=== PATIENT | male | born 1950 | race Caucasian/White ===

== ENCOUNTER 2017-12-25 01:19 | Emergency (ER) | payer MEDICARE ==
--- NOTE | 2017-12-25 01:24 | ER Report ---
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 Patient got up to go urinate. When he returned to bed. He was unable to lie supine and sleep. He only notes a history of hypertension. He was a former smoker who quit in 1999. Of COPD on arrival. His pulse ox is 87% on room air. Patient voices no fever, chills or productive cough. Patient notes no leg swelling or calf pain. Patient notes no chest pain. Patient denies sleep apnea. REVIEW OF SYSTEMS: Respiratory: As above Cardiovascular: No chest pain, no palpitations. Gastrointestinal: No vomiting, no abdominal pain. Musculoskeletal: No back pain. 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 Reviewed Nurses Notes: Yes Old Medical Records Reviewed: Yes Constitutional Vital Sign - Last 24 Hours 12/25/17 12/25/17 12/25/17 12/25/17 01:25 01:26 01:34 01:39 Temp 98.7 Pulse 75 71 Resp 18 B/P (MAP) 154/93 (113) 154/93 Pulse Ox 87 98 O2 Delivery Room Air O2 Flow Rate 2.0 12/25/17 12/25/17 12/25/17 12/25/17 01:46 01:46 01:49 02:30 Pulse 71 73 Resp 16 B/P (MAP) 128/86 (100) Pulse Ox 95 95 O2 Delivery Nasal Cannula O2 Flow Rate 3.0 12/25/17 12/25/17 12/25/17 12/25/17 02:34 02:39 02:54 03:09 Pulse 71 71 71 70 Pulse Ox 96 95 95 97 12/25/17 12/25/17 03:24 03:49 Pulse 72 85 Resp 16 B/P (MAP) 138/85 (102) Pulse Ox 97 95 O2 Delivery Room Air Physical Exam Vital signs stable, afebrile, pulse ox low 87% on room air General Appearance: The patient is alert, has no immediate need for airway protection and no current signs of toxicity. Vital signs stable, afebrile, pulse ox low 87% on room air. On 2 L sat 95% range HEENT: Pupils equal and round no injection. TMs normal, oropharynx without redness or exudate, mucous membranes are moist Respiratory: Chest is non tender, decreased breath sounds throughout, no wheezing or rhonchi Cardiac: regular rate and rhythm, distant heart sounds Gastrointestinal: Abdomen is soft and non tender, no masses, bowel sounds normal. Musculoskeletal: Neck: Neck is supple and non tender. Extremities have full range of motion and are non tender. No edema, no calf tenderness Skin: No rashes or lesions. DIFFERENTIAL DIAGNOSIS: After history and physical exam differential diagnosis was considered for shortness of breath including but not limited to pulmonary infectious process, COPD, asthma, pulmonary embolus and congestive heart failure. Medical Decision Making Data Points Result Diagram: 12/25/1712912/25/17129 Laboratory Hematology Test 12/25/17 01:30 Red Blood Count 5.14 M/uL (4.00-5.60) Mean Corpuscular Volume 87.2 fL (80.0-96.0) Mean Corpuscular Hemoglobin 30.2 pg (26.0-33.0) Mean Corpuscular Hemoglobin Concent 34.6 g/dL (32.0-36.0) Red Cell Distribution Width 13.0 % (11.5-14.5) Mean Platelet Volume 8.9 fL (7.2-11.1) Neutrophils (%) (Auto) 62.2 % (39.4-72.5) Lymphocytes (%) (Auto) 25.5 % (17.6-49.6) Monocytes (%) (Auto) 8.0 % (4.1-12.4) Eosinophils (%) (Auto) 3.4 % (0.4-6.7) Basophils (%) (Auto) 0.9 % (0.3-1.4) Nucleated RBC Relative Count (auto) 0.1 /100WBC Neutrophils # (Auto) 5.2 K/uL (2.0-7.4) Lymphocytes # (Auto) 2.1 K/uL (1.3-3.6) Monocytes # (Auto) 0.7 K/uL (0.3-1.0) Eosinophils # (Auto) 0.3 K/uL (0.0-0.5) Basophils # (Auto) 0.1 K/uL (0.0-0.1) Nucleated RBC Absolute Count (auto) 0.01 K/uL D-Dimer Quantitative (PE/DVT) 2.34 ug/ml (0-0.50) Sodium Level 141 mmol/L (137-145) Potassium Level 3.8 mmol/L (3.5-5.0) Chloride Level 98 mmol/L (98-107) Carbon Dioxide Level 32 mmol/L (22-30) Blood Urea Nitrogen 21 mg/dl (9-21) Creatinine 1.30 mg/dl (0.66-1.25) Glomerular Filtration Rate Calc 54.9 Random Glucose 131 mg/dl (75-110) Calcium Level 9.3 mg/dl (8.4-10.2) Total Bilirubin 0.7 mg/dl (0.2-1.3) Aspartate Amino Transf (AST/SGOT) 61 U/L (0-35) Alanine Aminotransferase (ALT/SGPT) 91 U/L (0-56) Alkaline Phosphatase 76 U/L (0-126) Troponin I < 0.012 ng/ml B-Type Natriuretic Peptide 36 pg/ml (0-100) Total Protein 7.9 g/dl (6.3-8.2) Albumin 4.3 g/dl (3.5-5.0) Chemistry Test 12/25/17 01:30 White Blood Count 8.3 k/uL (4.5-11.0) Red Blood Count 5.14 M/uL (4.00-5.60) Hemoglobin 15.5 g/dL (14.0-18.0) Hematocrit 44.8 % (42.0-52.0) Mean Corpuscular Volume 87.2 fL (80.0-96.0) Mean Corpuscular Hemoglobin 30.2 pg (26.0-33.0) Mean Corpuscular Hemoglobin Concent 34.6 g/dL (32.0-36.0) Red Cell Distribution Width 13.0 % (11.5-14.5) Platelet Count 232 K/uL (150-450) Mean Platelet Volume 8.9 fL (7.2-11.1) Neutrophils (%) (Auto) 62.2 % (39.4-72.5) Lymphocytes (%) (Auto) 25.5 % (17.6-49.6) Monocytes (%) (Auto) 8.0 % (4.1-12.4) Eosinophils (%) (Auto) 3.4 % (0.4-6.7) Basophils (%) (Auto) 0.9 % (0.3-1.4) Nucleated RBC Relative Count (auto) 0.1 /100WBC Neutrophils # (Auto) 5.2 K/uL (2.0-7.4) Lymphocytes # (Auto) 2.1 K/uL (1.3-3.6) Monocytes # (Auto) 0.7 K/uL (0.3-1.0) Eosinophils # (Auto) 0.3 K/uL (0.0-0.5) Basophils # (Auto) 0.1 K/uL (0.0-0.1) Nucleated RBC Absolute Count (auto) 0.01 K/uL D-Dimer Quantitative (PE/DVT) 2.34 ug/ml (0-0.50) Glomerular Filtration Rate Calc 54.9 Calcium Level 9.3 mg/dl (8.4-10.2) Total Bilirubin 0.7 mg/dl (0.2-1.3) Aspartate Amino Transf (AST/SGOT) 61 U/L (0-35) Alanine Aminotransferase (ALT/SGPT) 91 U/L (0-56) Alkaline Phosphatase 76 U/L (0-126) Troponin I < 0.012 ng/ml B-Type Natriuretic Peptide 36 pg/ml (0-100) Total Protein 7.9 g/dl (6.3-8.2) Albumin 4.3 g/dl (3.5-5.0) Coagulation Test 12/25/17 01:30 D-Dimer Quantitative (PE/DVT) 2.34 ug/ml EKG/Imaging EKG Interpretation 12 lead EK 145 Rhythm: normal sinus rhythm Morrison: normal QRS: normal ST segments: normal, no evidence of ischemia or dysrhythmia Imaging Results: CT scan of the CTA pulmonary angiogram was obtained. The results of the study are CT ANGIOGRAM OF THE CHEST WITH INTRAVENOUS CONTRAST, PE PROTOCOL DATE OF EXAM: 12/25/2017 01:57 COMPARISON: None. INDICATION: dyspnea. TECHNIQUE: Contrast enhanced chest CT performed during the injection of 75 ml of Isovue-370. Three-dimensional (MIP) reconstructions were performed. FINDINGS: Negative for pulmonary arterial embolus. Thyroid: Normal Thoracic inlet: No adenopathy. Heart and great vessels: Heart size is normal. LAD atherosclerosis is noted. Mediastinum and ana: No mediastinal or hilar adenopathy. Lungs and pleura: Mild to moderate apical predominant centrilobular emphysema. Mild dependent atelectasis at the lung bases. Breast and axilla: Not diagnostically imaged. Bones and soft tissues: Multilevel degenerative findings. No acute osseous abnormality. Upper abdomen: Unremarkable IMPRESSION: Negative for pulmonary arterial embolus. The study was read by the radiologist. I viewed the images myself on the PACS system. ED Course/Re-evaluation Clinical Indication for ER IV: IV Access ED Course Patient was admitted to an examination room. H&P was done. The differential diagnoses was considered. Patient is from a lower elevation. He's here deer [place]. He has sleep apnea. He woke up to go to the bathroom. He became short of breath, was unable to sleep or lie supine. He came to the ER for evaluation. Arrival, patient's pulse ox is mildly low at 87%. He's had no chest pain or leg swelling. As a productive cough to suggest pneumonia or infectious etiology. His EKG is unremarkable for evidence of ischemia or dysrhythmia. A diagnostic studies show elevated d-dimer. He is sent for CTA pulmonary injury gram which is unremarkable. It does show some emphysema. He did improve with a DuoNeb treatment. He'll be discharged on albuterol inhaler. He's advised to follow-up with his primary care doctor upon returning home to [facility]. Decision to Disposition Date: Dec 25, 2017 Decision to Disposition Time: 03:26 Depart Departure Latest Vital Signs Vital Signs Date Time Temp Pulse Resp B/P (MAP) Pulse Ox O2 Delivery O2 Flow Rate FiO2 12/25/17 03:49 85 16 138/85 (102) 95 Room Air 12/25/17 01:46 3.0 12/25/17 01:26 98.7 Impression: Primary Impression: Dyspnea Additional Impressions: Hypoxia Sleep apnea COPD (chronic obstructive pulmonary disease) Condition: Improved Disposition: HOME OR SELF-CARE Patient Instructions: Dyspnea (ED) Additional Instructions: Follow-up with your physician upon returning home [place] Problem Qualifiers Primary Impression: Dyspnea Dyspnea type: unspecified Qualified Codes: R06.00 - Dyspnea, unspecified Additional Impressions: Sleep apnea Sleep apnea type: unspecified type Qualified Codes: G47.30 - Sleep apnea, unspecified COPD (chronic obstructive pulmonary disease) COPD type: emphysema Emphysema type: centrilobular Qualified Codes: J43.2 - Centrilobular emphysema POONAM PARRY DO Dec 25, 2017 01:24
[2017-12-25] MEDS ORDERED: BLOOD PRESSURE (01:26)
[2017-12-25] MEDS ORDERED: DIURETIC (01:26)
[2017-12-25] MEDS ORDERED: methylPREDNIS SUCC 125 MG/2ML IVP ONE (01:35)
[2017-12-25] MEDS ORDERED: ALBUTEROL/IPRATROPIUM 3 ML NEB NEB ONE (01:35)
[2017-12-25 01:49] LABS: PLATELET COUNT, AUTOMATED 232 K/uL (150-450)
[2017-12-25] MEDS ORDERED: NS(*) 0.9% 50 ML BAG 50 ML ONE (02:10)
[2017-12-25] MEDS ORDERED: IOPAMIDOL 76% 75 ML INFUS BTL 75 ML ONE (02:10)
--- NOTE | 2017-12-25 03:10 | EKG ---
FACILITY: [facility] PATIENT NAME: SANTOS BHAT : [id number] MR: [id number] V: [id number] EXAM DATE: ORDERING PHYSICIAN: POONAM PARRY TECHNOLOGIST: NORMA Test Reason : DYSPNEA Blood Pressure : / mmHG Vent. Rate : 069 BPM Atrial Rate : 069 BPM P-R Int : 154 ms QRS Dur : 094 ms QT Int : 390 ms P-R-T Axes : 004 051 053 degrees QTc Int : 417 ms Normal sinus rhythm Normal ECG No previous ECGs available Confirmed by Yinka Mckeon ([id number]) on 12/25/2017 6:30:35 AM Referred By: BRINDA Confirmed By:Yinka Hernandez
--- NOTE | 2017-12-25 03:21 | RADIOLOGY IMAGING REPORT ---
[place] [facility] [place] NAME: Link Mancia : 1950 MR: [id number] V: [id number] EXAM DATE: [id number] ORDERING PHYSICIAN: POONAM PARRY TECHNOLOGIST: Location: [facility] [place] Patient: Link Mancia : 1950 Visit/Account:[id number] Date of Sevice: 12/25/2017 CT ANGIOGRAM OF THE CHEST WITH INTRAVENOUS CONTRAST, PE PROTOCOL DATE OF EXAM: 12/25/2017 01:57 COMPARISON: None. INDICATION: dyspnea. TECHNIQUE: Contrast enhanced chest CT performed during the injection of 75 ml of Isovue-370. Three-d imensional (MIP) reconstructions were performed. FINDINGS: Negative for pulmonary arterial embolus. Thyroid: Normal Thoracic inlet: No adenopathy. Heart and great vessels: Heart size is normal. LAD atherosclerosis is noted. Mediastinum and ana: No mediastinal or hilar adenopathy. Lungs and pleura: Mild to moderate apical predominant centrilobular emphysema. Mild dependent atelec tasis at the lung bases. Breast and axilla: Not diagnostically imaged. Bones and soft tissues: Multilevel degenerative findings. No acute osseous abnormality. Upper abdomen: Unremarkable IMPRESSION: Negative for pulmonary arterial embolus. One of the following dose optimization techniques was utilized in the performance of this exam: Autom ated exposure control; adjustment of the mA and/or kV according to the patient's size; or use of an i terative reconstruction technique. Specific details can be referenced in the facility's radiology C T exam operational policy. Report Dictated By: Moises Snider MD at 12/25/2017 2:50 AM Report E-Signed By: Moises Snider MD at 12/25/2017 3:01 AM [id number]
[2017-12-25] MEDS ORDERED: ALBUTEROL 8 GM INHALER INH ONE (03:25)
[2017-12-25 03:49] VITALS: BP 138/85
== END 2017-12-25 03:54 | disposition home or self-care (01) ==
LOC: ER 01:37
DX: G47.30 Sleep apnea, unspecified (principal); J43.2 Centrilobular emphysema; R06.00 Dyspnea, unspecified; R09.02 Hypoxemia
CPT/HCPCS: 71275; 83880; 84484; 85025; 85379; 93005; 94640; 96374; 99284; J2930; J3535; J7050; J7620; Q9967; 82040; 82247; 82310; 82374; 82435; 82565; 82947; 84075; 84132; 84155; 84295; 84450; 84460; 84520